=== PATIENT | male | born 1960 | race Caucasian/White ===

== ENCOUNTER 2021-01-28 21:48 | Inpatient (IN) | payer MEDICARE ==
[~2021-01-28] VITALS: Ht 175.3 cm; Wt 95.0 kg
[~2021-01-28 21:48] MED LIST: COLACE 100MG C100 MG PO; DOXYCYCLINE HY100 M2 PO; FERROUS SULFAT325 M2 PO; FLAGYL500 MG PO; JANUVIA50 MG PO; LEVAQUIN500 MG PO; NORVASC 5 MG TAB5 MG PO; SILVADENE CREAM20 GM TOP; TYLENOL 325MG325 MG PO
[2021-01-29 03:19] LABS: HEMOGLOBIN 12.5 gm/dl (14.0-17.5); RED BLOOD COUNT 4.36 M/UL (4.20-5.50); WHITE BLOOD COUNT 7.5 K/UL (4.5-11.0)
[2021-01-29 03:48] LABS: BUN/CREATININE RATIO 19 (0-10)
[2021-01-29] MEDS ORDERED: GLUCOPHAGE 500500 MG PO (08:55)
[2021-01-29] MEDS ORDERED: CINNAMON500 MG PO (08:56)
[2021-01-29] MEDS ORDERED: [UNRECOGNIZED DRUG - OTHER] PO (08:57)
[2021-01-29] MEDS ORDERED: ALEVE220 M1 PO (08:59)
[2021-01-30 03:55] LABS: HEMOGLOBIN 11.3 gm/dl (14.0-17.5); WHITE BLOOD COUNT 6.5 K/UL (4.5-11.0)
[2021-01-30 04:02] LABS: RED BLOOD COUNT 3.92 M/UL (4.20-5.50)
[2021-01-31 04:34] LABS: HEMOGLOBIN 12.8 gm/dl (14.0-17.5)
[2021-01-31 04:35] LABS: RED BLOOD COUNT 4.41 M/UL (4.20-5.50)
[2021-02-01 03:57] LABS: HEMOGLOBIN 12.2 gm/dl (14.0-17.5); RED BLOOD COUNT 4.31 M/UL (4.20-5.50); WHITE BLOOD COUNT 5.7 K/UL (4.5-11.0)
[2021-02-02 03:14] LABS: HEMOGLOBIN 11.8 gm/dl (14.0-17.5); RED BLOOD COUNT 4.13 M/UL (4.20-5.50); WHITE BLOOD COUNT 5.5 K/UL (4.5-11.0)
[2021-02-03 03:19] LABS: HEMOGLOBIN 11.9 gm/dl (14.0-17.5); RED BLOOD COUNT 4.2 M/UL (4.20-5.50); WHITE BLOOD COUNT 6.2 K/UL (4.5-11.0)
[2021-02-04 03:27] LABS: HEMOGLOBIN 11.6 gm/dl (14.0-17.5); RED BLOOD COUNT 4.09 M/UL (4.20-5.50); WHITE BLOOD COUNT 6.1 K/UL (4.5-11.0)
[2021-02-04] MEDS ORDERED: CARVEDILOL3.125 MG PO (12:59)
[2021-02-04] MEDS ORDERED: ALDACTONE 25MG25 MG PO (12:59)
[2021-02-04] MEDS ORDERED: ASPIRIN EC81 MG PO (12:59)
[2021-02-04] MEDS ORDERED: BUMETANIDE1 MG PO (12:59)
[2021-02-04] MEDS ORDERED: CRESTOR 10 MG T10 MG PO (12:59)
[2021-02-04] MEDS ORDERED: HUMALOG 10100 UNITS/ SC (12:59)
[2021-02-04] MEDS ORDERED: LANTUS INS100 UTS/M1 SC (12:59)
== END 2021-02-04 16:13 | disposition home or self-care (01) | DRG 291 ==
LOC: ER1 21:48 → CDU 01-29 04:42 → M/S 01-29 15:30
PROVIDERS: Emergency Medicine; Internal Medicine; Internal Medicine Nephrology; Physician Assistant Medical; ADMIT Internal Medicine
PROC: B24BZZ4 Ultrasonography of Heart with Aorta, Transesophageal (ICD-10-PCS; principal; 2021-01-29)
DX: I13.0 Hypertensive heart and chronic kidney disease with heart failure and stage 1 through stage 4 chronic kidney disease, or unspecified chronic kidney disease (principal); I50.23 Acute on chronic systolic (congestive) heart failure; N17.9 Acute kidney failure, unspecified; N18.4 Chronic kidney disease, stage 4 (severe); M86.672 Other chronic osteomyelitis, left ankle and foot; I25.5 Ischemic cardiomyopathy; I44.7 Left bundle-branch block, unspecified; E11.22 Type 2 diabetes mellitus with diabetic chronic kidney disease; Z20.822 Contact with and (suspected) exposure to COVID-19; R29.6 Repeated falls; I34.0 Nonrheumatic mitral (valve) insufficiency; E11.69 Type 2 diabetes mellitus with other specified complication; D63.1 Anemia in chronic kidney disease; K21.9 Gastro-esophageal reflux disease without esophagitis; I42.0 Dilated cardiomyopathy; Z80.9 Family history of malignant neoplasm, unspecified; Z83.3 Family history of diabetes mellitus; Z82.49 Family history of ischemic heart disease and other diseases of the circulatory system
CPT/HCPCS: ECHO; 0240U; 36415; 36600; 71045; 80048; 80053; 80061; 81001; 82550; 82553; 82728; 82803; 82962; 83036; 83540; 83550; 83735; 83874; 83880; 84484; 85025; 85027; 85379; 93005; 93306; 96365; 96366; 96372; 96375; 96376; 99285; G0378; J1250; J1650; J1940; J2405; J7030

== ENCOUNTER → 2021-03-26 | Outpatient (CLI) | payer MEDICARE ==
[~2021-03-26] MED LIST changes: +ALDACTONE 25MG25 MG PO; +ALEVE220 M1 PO; +ASPIRIN EC81 MG PO; +BUMETANIDE1 MG PO; +CARVEDILOL3.125 MG PO; +CINNAMON500 MG PO; +CRESTOR 10 MG T10 MG PO; +GLUCOPHAGE 500500 MG PO; +HUMALOG 10100 UNITS/ SC; +LANTUS INS100 UTS/M1 SC; +[UNRECOGNIZED DRUG - OTHER] PO
== END ==
LOC: HEART 5 08:21
DX: I50.22 Chronic systolic (congestive) heart failure (principal); I44.7 Left bundle-branch block, unspecified
CPT/HCPCS: 78452; A9502; J2785

== ENCOUNTER 2021-10-23 08:43 | Observation (INO) | payer MEDICARE ==
[~2021-10-23] VITALS: Ht 175.3 cm; Wt 101.2 kg
[2021-10-23 09:44] LABS: RED BLOOD COUNT 4.95 M/UL (4.20-5.50); WHITE BLOOD COUNT 7.8 K/UL (4.5-11.0)
[2021-10-23 10:27] LABS: BUN/CREATININE RATIO 19 (0-10)
[2021-10-23] MEDS ORDERED: CARVEDILOL12.5 MG PO (11:50)
[2021-10-23] MEDS ORDERED: BUMETANIDE2 MG PO (11:50)
[2021-10-23] MEDS ORDERED: CLOPIDOGREL75 MG PO (11:51)
[2021-10-23] MEDS ORDERED: AMMONIUM LACTA225 GM TP (11:52)
[2021-10-24 02:13] LABS: HEMOGLOBIN 12.6 gm/dl (14.0-17.5); RED BLOOD COUNT 4.57 M/UL (4.20-5.50); WHITE BLOOD COUNT 11.9 K/UL (4.5-11.0)
[2021-10-25 06:52] LABS: HEMOGLOBIN 11.9 gm/dl (14.0-17.5); RED BLOOD COUNT 4.4 M/UL (4.20-5.50)
[2021-10-25 06:55] LABS: WHITE BLOOD COUNT 7.4 K/UL (4.5-11.0)
== END 2021-10-25 13:30 | disposition home or self-care (01) ==
LOC: ER1 08:43 → CDU 11:10 → MED SURG 4 11:10
PROVIDERS: Emergency Medicine; Physician Assistant; ADMIT Internal Medicine
DX: N17.9 Acute kidney failure, unspecified (principal); I13.0 Hypertensive heart and chronic kidney disease with heart failure and stage 1 through stage 4 chronic kidney disease, or unspecified chronic kidney disease; E11.22 Type 2 diabetes mellitus with diabetic chronic kidney disease; N18.32 Chronic kidney disease, stage 3b; I50.22 Chronic systolic (congestive) heart failure; I25.10 Atherosclerotic heart disease of native coronary artery without angina pectoris; E87.5 Hyperkalemia; I25.5 Ischemic cardiomyopathy; I44.7 Left bundle-branch block, unspecified; K21.9 Gastro-esophageal reflux disease without esophagitis; Z95.5 Presence of coronary angioplasty implant and graft; Z66 Do not resuscitate; Z79.01 Long term (current) use of anticoagulants; Z79.82 Long term (current) use of aspirin; Z79.899 Other long term (current) drug therapy; Z20.822 Contact with and (suspected) exposure to COVID-19
CPT/HCPCS: 36415; 36600; 71045; 74018; 80048; 80053; 82550; 82553; 82803; 82962; 83540; 83550; 83735; 83874; 83880; 84100; 84484; 85025; 85027; 93005; 94640; 94664; G0378; J2405; U0002

== ENCOUNTER 2022-01-05 16:13 | Inpatient (IN) | payer MEDICARE ==
[~2022-01-05] VITALS: Ht 175.3 cm; Wt 83.9 kg
[~2022-01-05 16:13] MED LIST changes: +AMMONIUM LACTA225 GM TP; +BUMETANIDE2 MG PO; +CARVEDILOL12.5 MG PO; +CLOPIDOGREL75 MG PO
[2022-01-05 17:18] LABS: HEMOGLOBIN 12.1 gm/dl (14.0-17.5); RED BLOOD COUNT 4.27 M/UL (4.20-5.50); WHITE BLOOD COUNT 9.7 K/UL (4.5-11.0)
[2022-01-05] MEDS ORDERED: JARDIANCE10 MG PO (18:49)
[2022-01-05] MEDS ORDERED: ENTRESTO 24 MG1 EACH PO (18:50)
[2022-01-05] MEDS ORDERED: HUMALOG100 UNIT/1 SQ (18:50)
[2022-01-05] MEDS ORDERED: CEFDINIR300 MG PO (18:53)
[2022-01-05] MEDS ORDERED: CIPROFLOXACIN500 M1 PO (18:53)
[2022-01-06 04:42] LABS: HEMOGLOBIN 10.8 gm/dl (14.0-17.5); RED BLOOD COUNT 3.86 M/UL (4.20-5.50); WHITE BLOOD COUNT 8.1 K/UL (4.5-11.0)
[2022-01-07 04:01] LABS: HEMOGLOBIN 11.3 gm/dl (14.0-17.5); RED BLOOD COUNT 4.01 M/UL (4.20-5.50)
--- NOTE | 2022-01-07 15:29 | NUR ---
DSG CHANGE TO LEFT FOOT ORDERED, PT TOLERATED WELL.
[2022-01-08 03:54] LABS: HEMOGLOBIN 11.9 gm/dl (14.0-17.5); RED BLOOD COUNT 4.27 M/UL (4.20-5.50); WHITE BLOOD COUNT 9.1 K/UL (4.5-11.0)
[2022-01-09 04:11] LABS: HEMOGLOBIN 12.1 gm/dl (14.0-17.5); RED BLOOD COUNT 4.3 M/UL (4.20-5.50); WHITE BLOOD COUNT 8.1 K/UL (4.5-11.0)
[2022-01-10 03:13] LABS: HEMOGLOBIN 11.7 gm/dl (14.0-17.5); RED BLOOD COUNT 4.2 M/UL (4.20-5.50)
[2022-01-10 03:59] LABS: WHITE BLOOD COUNT 13.6 K/UL (4.5-11.0)
[2022-01-11 05:34] LABS: HEMOGLOBIN 12.4 gm/dl (14.0-17.5); RED BLOOD COUNT 4.44 M/UL (4.20-5.50); WHITE BLOOD COUNT 13.4 K/UL (4.5-11.0)
[2022-01-12 06:41] LABS: HEMOGLOBIN 12.1 gm/dl (14.0-17.5); RED BLOOD COUNT 4.3 M/UL (4.20-5.50); WHITE BLOOD COUNT 10.1 K/UL (4.5-11.0)
[2022-01-12] MEDS ORDERED: AMOX TR-K CLV1 EAC4 PO (16:44)
[2022-01-12] MEDS ORDERED: ATORVASTATIN CA20 MG PO (16:56)
== END 2022-01-12 18:35 | disposition home or self-care (01) | DRG 629 ==
LOC: ER1 16:13 → MED SURG 4 17:48 → CDU 17:48 → MED SURG 4 19:15
PROVIDERS: Emergency Medicine; Physician Assistant; Podiatrist Foot & Ankle Surgery; ADMIT Internal Medicine
PROC: 3E03329 Introduction of Other Anti-infective into Peripheral Vein, Percutaneous Approach (ICD-10-PCS; 2022-01-05)
PROC: 0QBP0ZZ Excision of Left Metatarsal, Open Approach (ICD-10-PCS; principal; 2022-01-09 08:13)
DX: E11.621 Type 2 diabetes mellitus with foot ulcer (principal); I13.0 Hypertensive heart and chronic kidney disease with heart failure and stage 1 through stage 4 chronic kidney disease, or unspecified chronic kidney disease; I50.22 Chronic systolic (congestive) heart failure; L03.116 Cellulitis of left lower limb; M86.672 Other chronic osteomyelitis, left ankle and foot; I25.10 Atherosclerotic heart disease of native coronary artery without angina pectoris; I25.5 Ischemic cardiomyopathy; Z20.822 Contact with and (suspected) exposure to COVID-19; E11.40 Type 2 diabetes mellitus with diabetic neuropathy, unspecified; I44.7 Left bundle-branch block, unspecified; E11.628 Type 2 diabetes mellitus with other skin complications; E11.65 Type 2 diabetes mellitus with hyperglycemia; E78.5 Hyperlipidemia, unspecified; E11.22 Type 2 diabetes mellitus with diabetic chronic kidney disease; B95.2 Enterococcus as the cause of diseases classified elsewhere; N18.30 Chronic kidney disease, stage 3 unspecified; Z95.1 Presence of aortocoronary bypass graft; Z83.3 Family history of diabetes mellitus; Z79.899 Other long term (current) drug therapy; Z79.82 Long term (current) use of aspirin; Z95.810 Presence of automatic (implantable) cardiac defibrillator; Z82.49 Family history of ischemic heart disease and other diseases of the circulatory system; Z89.422 Acquired absence of other left toe(s); Z80.8 Family history of malignant neoplasm of other organs or systems; Z79.02 Long term (current) use of antithrombotics/antiplatelets; Z79.01 Long term (current) use of anticoagulants; Z79.4 Long term (current) use of insulin
CPT/HCPCS: ECHO; 36415; 73630; 73718; 80048; 80053; 80202; 81001; 82962; 83036; 83605; 83735; 84100; 84439; 84443; 85025; 85610; 85652; 86140; 87040; 87070; 87077; 87186; 87205; 93005; 93306; 93925; 96374; 96375; 99285; J1100; J1335; J2001; J2405; J2543; J2704; J2795; J3010; J3370; J7030; J7070; J7120; Q4133; U0002

== ENCOUNTER 2022-04-21 20:43 | Inpatient (IN) | payer MEDICARE ==
[~2022-04-21] VITALS: Ht 175.3 cm; Wt 91.3 kg
[~2022-04-21 20:43] MED LIST changes: +AMOX TR-K CLV1 EAC4 PO; +ATORVASTATIN CA20 MG PO; +CEFDINIR300 MG PO; +CIPROFLOXACIN500 M1 PO; +ENTRESTO 24 MG1 EACH PO; +HUMALOG100 UNIT/1 SQ; +JARDIANCE10 MG PO
[2022-04-21 21:04] LABS: HEMOGLOBIN 12.9 gm/dl (14.0-17.5); RED BLOOD COUNT 4.6 M/UL (4.20-5.50); WHITE BLOOD COUNT 13.5 K/UL (4.5-11.0)
[2022-04-22 09:03] LABS: HEMOGLOBIN 13.3 gm/dl (14.0-17.5); RED BLOOD COUNT 4.7 M/UL (4.20-5.50)
[2022-04-22 09:11] LABS: WHITE BLOOD COUNT 19.6 K/UL (4.5-11.0)
[2022-04-22] MEDS ORDERED: TRESIBA100 UNIT/1 SQ (09:47)
[2022-04-23 03:10] LABS: HEMOGLOBIN 13.2 gm/dl (14.0-17.5); RED BLOOD COUNT 4.69 M/UL (4.20-5.50); WHITE BLOOD COUNT 18.5 K/UL (4.5-11.0)
--- NOTE | 2022-04-23 09:25 | NUR ---
DR. AGUIRRE ON FLOOR AND STATES TO PUT IN ORDER FOR FULL LIQUID DIET
[2022-04-24 02:39] LABS: HEMOGLOBIN 12.3 gm/dl (14.0-17.5); RED BLOOD COUNT 4.41 M/UL (4.20-5.50)
[2022-04-24 02:43] LABS: WHITE BLOOD COUNT 13.1 K/UL (4.5-11.0)
[2022-04-24 10:12] LABS: CREATININE, URINE 93.7 mg/dL (Not Estab.)
[2022-04-25 03:02] LABS: HEMOGLOBIN 12.2 gm/dl (14.0-17.5); RED BLOOD COUNT 4.36 M/UL (4.20-5.50); WHITE BLOOD COUNT 10.6 K/UL (4.5-11.0)
[2022-04-26 02:20] LABS: HEMOGLOBIN 12.5 gm/dl (14.0-17.5); RED BLOOD COUNT 4.45 M/UL (4.20-5.50); WHITE BLOOD COUNT 9.2 K/UL (4.5-11.0)
[2022-04-27 03:11] LABS: HBSAG SCREEN Negative (Negative); HCV AB 0.2 (0.0-0.9); HEP A AB, IGM Negative (Negative); HEP B CORE AB, IGM Negative (Negative)
[2022-04-27 03:11] LABS: HEMOGLOBIN 12.1 gm/dl (14.0-17.5); RED BLOOD COUNT 4.31 M/UL (4.20-5.50); WHITE BLOOD COUNT 7.2 K/UL (4.5-11.0)
[2022-04-28] MEDS ORDERED: BUMETANIDE1 MG PO (11:51)
[2022-04-28] MEDS ORDERED: CARVEDILOL6.25 MG PO (11:51)
== END 2022-04-28 14:07 | disposition home or self-care (01) | DRG 73 ==
LOC: ER1 20:43 → PROG CARE 04-22 01:24 → CDU 04-22 01:24 → PROG CARE 04-22 18:16
PROVIDERS: Internal Medicine Gastroenterology; Internal Medicine Infectious Disease; Internal Medicine Nephrology; Physician Assistant; ADMIT Internal Medicine
DX: E11.43 Type 2 diabetes mellitus with diabetic autonomic (poly)neuropathy (principal); N17.0 Acute kidney failure with tubular necrosis; I50.23 Acute on chronic systolic (congestive) heart failure; K31.1 Adult hypertrophic pyloric stenosis; M62.82 Rhabdomyolysis; R18.8 Other ascites; I13.0 Hypertensive heart and chronic kidney disease with heart failure and stage 1 through stage 4 chronic kidney disease, or unspecified chronic kidney disease; M86.8X7 Other osteomyelitis, ankle and foot; L03.116 Cellulitis of left lower limb; E87.1 Hypo-osmolality and hyponatremia; E87.2 Acidosis; Z20.822 Contact with and (suspected) exposure to COVID-19; E86.0 Dehydration; Z66 Do not resuscitate; R00.0 Tachycardia, unspecified; E11.622 Type 2 diabetes mellitus with other skin ulcer; I25.10 Atherosclerotic heart disease of native coronary artery without angina pectoris; I25.5 Ischemic cardiomyopathy; E11.69 Type 2 diabetes mellitus with other specified complication; I44.7 Left bundle-branch block, unspecified; K74.60 Unspecified cirrhosis of liver; E78.5 Hyperlipidemia, unspecified; N18.32 Chronic kidney disease, stage 3b; E11.649 Type 2 diabetes mellitus with hypoglycemia without coma; E11.21 Type 2 diabetes mellitus with diabetic nephropathy; K31.84 Gastroparesis; E11.22 Type 2 diabetes mellitus with diabetic chronic kidney disease; Z79.4 Long term (current) use of insulin; Z89.422 Acquired absence of other left toe(s); Z95.5 Presence of coronary angioplasty implant and graft; Z79.01 Long term (current) use of anticoagulants; Z79.82 Long term (current) use of aspirin; Z83.3 Family history of diabetes mellitus; Z80.9 Family history of malignant neoplasm, unspecified; Z82.49 Family history of ischemic heart disease and other diseases of the circulatory system
CPT/HCPCS: 36415; 71045; 76705; 80048; 80053; 80074; 81001; 82009; 82043; 82550; 82553; 82570; 82800; 82962; 83605; 83690; 83735; 83880; 83930; 83935; 84100; 84132; 84156; 84484; 85025; 85027; 85610; 86140; 87086; 93005; 96374; 96375; 96376; 99285; C9113; J1335; J1650; J2270; J2405; J2543; J2765; J7030

== ENCOUNTER 2022-04-29 13:53 | Observation (INO) | payer MEDICARE ==
[~2022-04-29] VITALS: Ht 170.2 cm; Wt 91.2 kg
[~2022-04-29 13:53] MED LIST changes: +CARVEDILOL6.25 MG PO; +TRESIBA100 UNIT/1 SQ
[2022-04-29 14:30] LABS: RED BLOOD COUNT 4.94 M/UL (4.20-5.50); WHITE BLOOD COUNT 10.6 K/UL (4.5-11.0)
[2022-04-30 03:39] LABS: RED BLOOD COUNT 4.29 M/UL (4.20-5.50); WHITE BLOOD COUNT 7.1 K/UL (4.5-11.0)
[2022-05-01 03:21] LABS: HEMOGLOBIN 12.6 gm/dl (14.0-17.5); RED BLOOD COUNT 4.54 M/UL (4.20-5.50); WHITE BLOOD COUNT 7.7 K/UL (4.5-11.0)
== END 2022-05-01 16:27 | disposition home or self-care (01) ==
LOC: ER1 13:53 → CDU 14:29 → M/S 14:29
PROVIDERS: Internal Medicine; Physician Assistant Medical; Preventive Medicine Occupational Medicine; ADMIT Internal Medicine
DX: R53.81 Other malaise (principal); I13.0 Hypertensive heart and chronic kidney disease with heart failure and stage 1 through stage 4 chronic kidney disease, or unspecified chronic kidney disease; E11.22 Type 2 diabetes mellitus with diabetic chronic kidney disease; N18.30 Chronic kidney disease, stage 3 unspecified; Z66 Do not resuscitate; T23.252A Burn of second degree of left palm, initial encounter; I25.10 Atherosclerotic heart disease of native coronary artery without angina pectoris; E86.0 Dehydration; I50.32 Chronic diastolic (congestive) heart failure; I25.5 Ischemic cardiomyopathy; I44.7 Left bundle-branch block, unspecified; K74.60 Unspecified cirrhosis of liver; E78.5 Hyperlipidemia, unspecified; X19.XXXA Contact with other heat and hot substances, initial encounter; Z79.4 Long term (current) use of insulin; Z79.02 Long term (current) use of antithrombotics/antiplatelets; Z79.82 Long term (current) use of aspirin; Z79.84 Long term (current) use of oral hypoglycemic drugs; Z79.899 Other long term (current) drug therapy; Z95.5 Presence of coronary angioplasty implant and graft
CPT/HCPCS: 36415; 80048; 80053; 82550; 82553; 82962; 83735; 85025; 85027; 97116; 97116-GP-CQ; 97162; 97165; 97530; 99285; G0378